=== PATIENT | male | born 1980 | race Caucasian/White ===

== ENCOUNTER 2016-09-16 04:57 | Emergency (ER) | payer MEDICARE, MEDICAID ==
[~2016-09-16] VITALS: Ht 167.6 cm; Wt 88.0 kg
[~2016-09-16 04:57] MED LIST: ACET500C5 PO; IBUP-1542 PO; LORA-444; NAPR-260 PO; OLAN20TA3; TRAZ50TA18 PO; VALS80TA2
[2016-09-16 05:10] VITALS: Ht 167.6 cm; Wt 88.0 kg
[2016-09-16] MEDS ORDERED: HALOPERIDOL 5 MG INJ ONE (05:27)
[2016-09-16] MEDS ORDERED: DIPHENHYDRAMINE 50 MG INJ ONE (05:27)
[2016-09-16] MEDS ORDERED: LORAZEPAM 2 MG INJ ONE (05:28)
[2016-09-16] MEDS ORDERED: DIPHENHYDRAMINE 50 MG INJ IM ONE (06:00)
[2016-09-16] MEDS ORDERED: HALOPERIDOL 5 MG INJ IM ONE ×2 (06:00→06:30)
[2016-09-16] MEDS ORDERED: LORAZEPAM 2 MG INJ IM ONE ×2 (06:00→06:30)
[2016-09-16 06:04] LABS: ADD SCAN DIFF NO
[2016-09-16 06:10] LABS: ABNORMAL IP MESSAGE 1; BASOPHIL # 0.1 10^3/ul (0.0-0.1); BASOPHILS % 0.4 % (0.0-2.0); EOSINOPHILS # 0.1 10^3/ul (0.0-0.5); EOSINOPHILS % 0.6 % (0.0-7.0); HEMATOCRIT 46.9 % (42.0-52.0); HEMOGLOBIN 15.4 g/dl (14.0-18.0); LYMPHOCYTES # 3.9 10^3/ul (0.8-2.9); LYMPHOCYTES % 17.3 % (15.0-51.0); MEAN CORPUSCULAR HEMOGLOBIN 29.3 pg (29.0-33.0); MEAN CORPUSCULAR HGB CONC 32.8 g/dl (32.0-37.0); MEAN CORPUSCULAR VOLUME 89.2 fl (82.0-101.0); MEAN PLATELET VOLUME 8.9 fl (7.4-10.4); MONOCYTE # 1.7 10^3/ul (0.3-0.9); MONOCYTES % 7.5 % (0.0-11.0); NEUTROPHIL # 16.5 10^3/ul (1.6-7.5); NEUTROPHILS % 73.1 % (39.0-77.0); PLATELET COUNT 456 10^3/UL (140-415); RED BLOOD COUNT 5.26 10^6/ul (4.70-6.10); RED CELL DISTRIBUTION WIDTH 14.2 % (11.5-14.5); WHITE BLOOD COUNT 22.6 10^3/ul (4.8-10.8)
[2016-09-16] MEDS ORDERED: MIDAZOLAM 1 MG/ML 5 ML INJ IM ONE (06:30)
[2016-09-16] MEDS ORDERED: MIDAZOLAM 1 MG/ML 2 ML INJ IM ONE (06:31)
[2016-09-16 06:33] LABS: ADD UMIC NO; URINE BILIRUBIN (Dip) NEGATIVE (NEGATIVE); URINE BLOOD (Dip) NEGATIVE (NEGATIVE); URINE COLOR LT. YELLOW (YELLOW); URINE KETONES (Dip) TRACE (NEGATIVE); URINE LEUKOCYTE ESTERASE (Dip) NEGATIVE (NEGATIVE); URINE NITRITE (Dip) NEGATIVE (NEGATIVE); URINE TOTAL PROTEIN (Dip) NEGATIVE (NEGATIVE); URINE UROBILINOGEN (Dip) 0.2 E.U./dL (0.1-1.0)
[2016-09-16] MEDS ORDERED: MIDAZOLAM 5 MG/ML 1ML INJ IM ONE (06:35)
[2016-09-16 06:44] LABS: ALBUMIN 4.7 g/dl (3.3-4.9); CHLORIDE 101 mmol/L (97-110)
[2016-09-16 06:45] LABS: POTASSIUM 3.9 mmol/L (3.5-5.1); SODIUM 146 mmol/L (135-144)
[2016-09-16 06:47] LABS: ALANINE AMINOTRANSFERASE 24 IU/L (13-69); ALBUMIN/GLOBULIN RATIO 1.17; ALKALINE PHOSPHATASE 78 IU/L (42-121); ANION GAP 20 (8-16); ASPARTATE AMINO TRANSFERASE 18 IU/L (15-46); BILIRUBIN,INDIRECT 0.6 mg/dl (0-1.1); BILIRUBIN,TOTAL 0.6 mg/dl (0.2-1.3); BLOOD UREA NITROGEN 16 mg/dl (7-20); CARBON DIOXIDE 29 mmol/L (21-31); CREATININE 0.74 mg/dl (0.61-1.24); TOTAL PROTEIN 8.7 g/dl (6.1-8.1)
[2016-09-16 06:48] LABS: CALCIUM 10.8 mg/dl (8.4-10.2); GLUCOSE 214 mg/dl (70-220)
[2016-09-16 06:58] LABS: CANNABINOIDS Positive (NEGATIVE)
[2016-09-16 07:06] LABS: ACETAMINOPHEN < 10.0 ug/ml (10.0-30.0); ETHANOL < 10.0 mg/dl; SALICYLATE < 1.0 mg/dl (5.0-30.0)
[2016-09-16 07:14] LABS: BARBITURATES Negative (NEGATIVE); BENZODIAZEPINES Negative (NEGATIVE); COCAINE Negative (NEGATIVE); OPIATES Negative (NEGATIVE)
--- NOTE | 2016-09-16 08:09 | ERA ---
ER Documentation Chief Complaint Date/Time DATE: 09/16/16 TIME: 08:05 Chief Complaint BIBA & PD,not in custody,combative,wanted "to blow up" hospital,rt CP HPI This is a 36-year-old male who presents to the emergency room after being brought in by ambulance and police for agitation. The patient states that he did use cocaine. The patient states that "I do not want to talk to anyone". He also states that he does not like anyone to be around him. He is denying any suicidal ideation, but states that he will " Kill anyone who tries to touch me" further history is unobtainable from patient ROS All systems reviewed and are negative except as per history of present illness. Medications Home Meds Active Scripts Acetaminophen* (Tylophen*) 500 Mg Capsule, 1 CAP PO TID Y for PAIN, #30 CAP Prov:AHMET MEDINA MD 06/13/16 Naproxen* (Naprosyn*) 500 Mg Tablet, 500 MG PO BID Y for PAIN AND/OR INFLAMMATION, #30 TAB Prov:AHMET MEDINA MD 06/13/16 Ibuprofen* (Ibuprofen*) 600 Mg Tablet, 600 MG PO Q8 for PAIN AND/OR INFLAMMATION , #30 TAB Prov:AHMET MEDINA MD 06/13/16 Trazodone Hcl* (Trazodone Hcl*) 50 Mg Tablet, 50 MG PO QHS Y for INSOMNIA, #6 TAB Prov:ANUPAM CRYSTAL DO 02/14/16 Reported Medications Valsartan* (Diovan*) 80 Mg Tablet 07/27/09 Lorazepam* (Ativan*) 2 Mg Tablet 07/27/09 Olanzapine* (Zyprexa*) 20 Mg Tablet 07/27/09 Allergies Allergies: Coded Allergies: divalproex sodium (Verified Allergy, Mild, 09/16/16) risperidone (Verified Allergy, Mild, 09/16/16) PMhx/Soc History of Surgery: Yes (BACK,NECK) Hx Neurological Disorder: No Hx Respiratory Disorders: No Hx Cardiac Disorders: No Hx Psychiatric Problems: Yes (Bipolar) Hx Miscellaneous Medical Probl: Yes (HTN) Hx Alcohol Use: Yes (Smells of alcohol ) Hx Substance Use: Yes (Marijuana cocaine) Hx Tobacco Use: Yes Smoking Status: Current every day smoker Physical Exam Vitals Vital Signs Date Time Temp Pulse Resp B/P Pulse Ox O2 Delivery O2 Flow Rate FiO2 09/16/16 07:25 98.1 101 15 131/82 95 09/16/16 06:55 98.0 105 16 135/89 100 09/16/16 06:40 97.9 110 16 141/86 100 09/16/16 06:40 98.1 110 19 145/80 100 Room Air 09/16/16 05:10 98.7 115 18 141/74 95 Physical Exam INITIAL VITAL SIGNS: Reviewed by me GENERAL: The patient is well developed, extremely agitated and screaming HEENT: Dry mucous membranes pupils equal, round, and reactive to light. EOMI. There is no scleral icterus. NECK: C-spine is soft and supple, there is no meningismus. There is no cervical lymphadenopathy. LUNGS: Clear to auscultation bilaterally. There are no rales, wheezes or rhonchi. HEART: Tachycardic, no murmurs, clicks, rubs or gallops. ABDOMEN: Soft, non-tender, non-distended. There are bowel sounds in all four quadrants. No rebound or guarding. EXTREMITIES: There is no peripheral cyanosis or edema. No focal swelling or erythema. NEUROLOGICAL: The patient moves all four extremities with 5/5 strength. Cranial nerves II - XII are intact. Normal gait. Alert and oriented SKIN: There is no apparent rash or petechiae. HEME/LYMPHATIC: There is no evidence of excessive bruising or lymphedema. PSYCHIATRIC: The patient appears extremely agitated, yelling and cursing Result Diagram: 09/16/16 0550 09/16/16 0550 Results 24 hrs Laboratory Tests Test 09/16/16 05:50 09/16/16 06:10 Acetaminophen Level < 10.0ug/ml Alanine Aminotransferase (ALT/SGPT) 24IU/L Albumin 4.7g/dl Albumin/Globulin Ratio 1.17 Alkaline Phosphatase 78IU/L Anion Gap 20 Aspartate Amino Transf (AST/SGOT) 18IU/L Basophils # 0.110^3/ul Basophils % 0.4% Blood Urea Nitrogen 16mg/dl Calcium Level 10.8mg/dl Carbon Dioxide Level 29mmol/L Chloride Level 101mmol/L Creatinine 0.74mg/dl Direct Bilirubin 0.00mg/dl Eosinophils # 0.110^3/ul Eosinophils % 0.6% Ethyl Alcohol Level < 10.0mg/dl Globulin 4.00g/dl Glucose Level 214mg/dl Hematocrit 46.9% Hemoglobin 15.4g/dl Indirect Bilirubin 0.6mg/dl Lymphocytes # 3.910^3/ul Lymphocytes % 17.3% Mean Corpuscular Hemoglobin 29.3pg Mean Corpuscular Hemoglobin Concent 32.8g/dl Mean Corpuscular Volume 89.2fl Mean Platelet Volume 8.9fl Monocytes # 1.710^3/ul Monocytes % 7.5% Neutrophils # 16.510^3/ul Neutrophils % 73.1% Nucleated Red Blood Cells # 0.010^3/ul Nucleated Red Blood Cells % 0.0/100WBC Platelet Count 90906^3/UL Potassium Level 3.9mmol/L Red Blood Count 5.2610^6/ul Red Cell Distribution Width 14.2% Salicylates Level < 1.0mg/dl Sodium Level 146mmol/L Total Bilirubin 0.6mg/dl Total Protein 8.7g/dl White Blood Count 22.610^3/ul Urine Amphetamines Screen Negative Urine Barbiturates Negative Urine Benzodiazepines Screen Negative Urine Bilirubin NEGATIVE Urine Cannabinoids Positive Urine Clarity CLEAR Urine Cocaine Screen Negative Urine Color LT. YELLOW Urine Glucose 0.1%% Urine Hemoglobin NEGATIVE Urine Ketones TRACE Urine Leukocyte Esterase NEGATIVE Urine Nitrite NEGATIVE Urine Opiates Screen Negative Urine Specific [place] 1.020 Urine Total Protein NEGATIVE Urine Urobilinogen 0.2 E.U./dL Urine pH 7.0 Current Medications Medications (Trade) Dose Ordered Sig/Sergio Route PRN Reason Start Time Stop Time Status Last Admin Dose Admin Diphenhydramine HCl (Benadryl) 50 mg STK-MED ONCE .ROUTE 09/16/16 05:27 09/16/16 05:28 DC Haloperidol (Haldol) 5 mg STK-MED ONCE .ROUTE 09/16/16 05:27 09/16/16 05:28 DC Lorazepam (Ativan) 2 mg STK-MED ONCE .ROUTE 09/16/16 05:28 09/16/16 05:29 DC Haloperidol (Haldol) 5 mg ONCE ONCE IM 09/16/16 06:00 09/16/16 06:01 DC 09/16/16 05:56 Diphenhydramine HCl (Benadryl) 50 mg ONCE ONCE IM 09/16/16 06:00 09/16/16 06:01 DC 09/16/16 05:56 Lorazepam (Ativan) 2 mg ONCE ONCE IM 09/16/16 06:00 09/16/16 06:01 DC 09/16/16 05:55 Lorazepam (Ativan) 4 mg ONCE ONCE IM 09/16/16 06:30 09/16/16 06:31 DC 09/16/16 06:11 Haloperidol (Haldol) 5 mg ONCE ONCE IM 09/16/16 06:30 09/16/16 06:31 DC 09/16/16 06:11 Midazolam HCl (Versed) 10 mg ONCE ONCE IM 09/16/16 06:30 09/16/16 06:30 DC Midazolam HCl (Versed) 10 mg ONCE ONCE IM 09/16/16 06:31 09/16/16 06:32 Cancel Midazolam HCl (Versed 5 Mg/ml) 10 mg ONCE ONCE IM 09/16/16 06:35 09/16/16 06:36 DC Procedures/MDM This 36-year-old male presents to the ER for evaluation of agitation. The patient does state that he used cocaine. The patient was cursing and yelling in the emergency room, and was given 2 mg intramuscular of Ativan, 5 mg intramuscular of Haldol. The patient continued to be aggressive towards myself and staff. Security was called in this patient was placed in 4. restraints. The patient was given 4 mg intramuscular of Ativan, and additional 5 mg of intramuscular Haldol. This patient will be evaluated by tele-psychiatric physician when he is alert. Smoking Cessation Therapy: Pt. was lectured for greater than 3 minutes on the health risks of continued smoking and the benefits of cessation. Departure Diagnosis: Primary Impression: Agitation Additional Impressions: Dehydration Cocaine abuse Tobacco abuse Condition: SMITA Russell DO Sep 16, 2016 08:09
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
[2016-09-16] MEDS ORDERED: SOD CHLORIDE 0.9% 1,000 ML IV STA (11:56)
[2016-09-16] MEDS ORDERED: LORAZEPAM 2 MG INJ IV ONE ×3 (12:00→14:30)
[2016-09-16] MEDS ORDERED: OLANZAPINE 5 MG TAB PO ONE (12:30)
[2016-09-16] MEDS ORDERED: DIPHENHYDRAMINE 50 MG INJ IV ONE (13:00)
[2016-09-16 16:00] VITALS: BP 131/86; PULSE 108; RESP 19; TEMP 98.2
== END 2016-09-16 16:20 ==
LOC: E/R 04:57
DX: R45.1 Restlessness and agitation (principal); E86.0 Dehydration; F14.10 Cocaine abuse, uncomplicated; F17.210 Nicotine dependence, cigarettes, uncomplicated; I10 Essential (primary) hypertension; E11.9 Type 2 diabetes mellitus without complications
CPT/HCPCS: 36415; 80053; 80306; 80307; 81003; 85025; 96372; 96374; 96375; 96376; 99285; J1200; J1630; J2060; J2250; J7030

== ENCOUNTER 2017-01-01 19:54 | Emergency (ER) | payer MEDICAID ==
[~2017-01-01] VITALS: Ht 167.6 cm; Wt 95.0 kg
[2017-01-01 19:59] VITALS: Ht 167.6 cm; Wt 95.0 kg
[2017-01-01] MEDS ORDERED: LORAZEPAM 2 MG INJ IM ONE (21:00)
[2017-01-01 22:37] LABS: ADD SCAN DIFF NO
[2017-01-01 22:42] LABS: BASOPHILS % 0.4 % (0.0-2.0); EOSINOPHILS % 0.4 % (0.0-7.0); HEMATOCRIT 41.2 % (42.0-52.0); HEMOGLOBIN 13.8 g/dl (14.0-18.0); LYMPHOCYTES # 2.9 10^3/ul (0.8-2.9); LYMPHOCYTES % 30.8 % (15.0-51.0); MEAN CORPUSCULAR HEMOGLOBIN 29.3 pg (29.0-33.0); MEAN CORPUSCULAR HGB CONC 33.5 g/dl (32.0-37.0); MEAN CORPUSCULAR VOLUME 87.5 fl (82.0-101.0); MEAN PLATELET VOLUME 8.6 fl (7.4-10.4); MONOCYTE # 0.6 10^3/ul (0.3-0.9); MONOCYTES % 6.1 % (0.0-11.0); NEUTROPHIL # 5.9 10^3/ul (1.6-7.5); NEUTROPHILS % 61.6 % (39.0-77.0); PLATELET COUNT 329 10^3/UL (140-415); RED BLOOD COUNT 4.71 10^6/ul (4.70-6.10); RED CELL DISTRIBUTION WIDTH 12.9 % (11.5-14.5); WHITE BLOOD COUNT 9.6 10^3/ul (4.8-10.8)
[2017-01-01 23:02] LABS: ALANINE AMINOTRANSFERASE 25 IU/L (13-69); ALBUMIN 5.2 g/dl (3.3-4.9); ALBUMIN/GLOBULIN RATIO 1.67; ALKALINE PHOSPHATASE 65 IU/L (42-121); ANION GAP 16 (8-16); ASPARTATE AMINO TRANSFERASE 14 IU/L (15-46); BILIRUBIN,INDIRECT 0.4 mg/dl (0-1.1); BILIRUBIN,TOTAL 0.4 mg/dl (0.2-1.3); BLOOD UREA NITROGEN 11 mg/dl (7-20); CALCIUM 10.1 mg/dl (8.4-10.2); CARBON DIOXIDE 24 mmol/L (21-31); CHLORIDE 104 mmol/L (97-110); CREATININE 0.79 mg/dl (0.61-1.24); GLUCOSE 161 mg/dl (70-220); POTASSIUM 4.4 mmol/L (3.5-5.1); SODIUM 140 mmol/L (135-144); TOTAL PROTEIN 8.3 g/dl (6.1-8.1)
[2017-01-01 23:03] LABS: ACETAMINOPHEN < 10.0 ug/ml (10.0-30.0); ETHANOL < 10.0 mg/dl; SALICYLATE < 1.0 mg/dl (5.0-30.0)
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
--- NOTE | 2017-01-02 02:58 | ERA ---
ER Documentation Chief Complaint Date/Time DATE: 01/02/17 TIME: 02:58 Chief Complaint psychiatric problems, in police custody HPI 28-year-old male brought in by police for being agitated and bizarre. Patient has delusions and has auditory and visual hallucinations. Patient called police that he had a gun. ROS All systems reviewed and are negative except as per history of present illness. Medications Home Meds Active Scripts Acetaminophen* (Tylophen*) 500 Mg Capsule, 1 CAP PO TID Y for PAIN, #30 CAP Prov:AHMET MEDINA MD 06/13/16 Naproxen* (Naprosyn*) 500 Mg Tablet, 500 MG PO BID Y for PAIN AND/OR INFLAMMATION, #30 TAB Prov:AHMET MEDINA MD 06/13/16 Ibuprofen* (Ibuprofen*) 600 Mg Tablet, 600 MG PO Q8 for PAIN AND/OR INFLAMMATION , #30 TAB Prov:AHMET MEDINA MD 06/13/16 Trazodone Hcl* (Trazodone Hcl*) 50 Mg Tablet, 50 MG PO QHS Y for INSOMNIA, #6 TAB Prov:ANUPAM CRYSTAL DO 02/14/16 Reported Medications Valsartan* (Diovan*) 80 Mg Tablet 07/27/09 Lorazepam* (Ativan*) 2 Mg Tablet 07/27/09 Olanzapine* (Zyprexa*) 20 Mg Tablet 07/27/09 Allergies Allergies: Coded Allergies: divalproex sodium (Verified Allergy, Mild, 09/16/16) risperidone (Verified Allergy, Mild, 09/16/16) PMhx/Soc History of Surgery: Yes (BACK,NECK) Hx Neurological Disorder: No Hx Respiratory Disorders: No Hx Cardiac Disorders: No Hx Psychiatric Problems: Yes (Bipolar) Hx Miscellaneous Medical Probl: Yes (HTN) Hx Alcohol Use: Yes (Smells of alcohol ) Hx Substance Use: Yes (crack cocaine) Hx Tobacco Use: Yes Smoking Status: Current every day smoker Physical Exam Vitals Vital Signs Date Time Temp Pulse Resp B/P Pulse Ox O2 Delivery O2 Flow Rate FiO2 01/01/17 19:59 97.9 114 26 170/101 98 Physical Exam Const: [] Head: Atraumatic Eyes: Normal Conjunctiva ENT: Normal External Ears, Nose and Mouth. Neck: Full range of motion..~ No meningismus. Resp: Clear to auscultation bilaterally Cardio: Regular rate and rhythm, no murmurs Abd: Soft, non tender, non distended. Normal bowel sounds Skin: No petechiae or rashes Back: No midline or flank tenderness Ext: No cyanosis, or edema Neur: Awake and alert Psych: Normal Mood and Affect Result Diagram: 01/01/17222401/01/172224 Results 24 hrs Laboratory Tests Test 01/01/17 20:30 01/01/17 22:25 Bedside Glucose 183mg/dL White Blood Count 9.610^3/ul Red Blood Count 4.7110^6/ul Hemoglobin 13.8g/dl Hematocrit 41.2% Mean Corpuscular Volume 87.5fl Mean Corpuscular Hemoglobin 29.3pg Mean Corpuscular Hemoglobin Concent 33.5g/dl Red Cell Distribution Width 12.9% Platelet Count 07854^3/UL Mean Platelet Volume 8.6fl Neutrophils % 61.6% Lymphocytes % 30.8% Monocytes % 6.1% Eosinophils % 0.4% Basophils % 0.4% Nucleated Red Blood Cells % 0.0/100WBC Neutrophils # 5.910^3/ul Lymphocytes # 2.910^3/ul Monocytes # 0.610^3/ul Eosinophils # 0.010^3/ul Basophils # 0.010^3/ul Nucleated Red Blood Cells # 0.010^3/ul Sodium Level 140mmol/L Potassium Level 4.4mmol/L Chloride Level 104mmol/L Carbon Dioxide Level 24mmol/L Anion Gap 16 Blood Urea Nitrogen 11mg/dl Creatinine 0.79mg/dl Glucose Level 161mg/dl Calcium Level 10.1mg/dl Total Bilirubin 0.4mg/dl Direct Bilirubin 0.00mg/dl Indirect Bilirubin 0.4mg/dl Aspartate Amino Transf (AST/SGOT) 14IU/L Alanine Aminotransferase (ALT/SGPT) 25IU/L Alkaline Phosphatase 65IU/L Total Protein 8.3g/dl Albumin 5.2g/dl Globulin 3.10g/dl Albumin/Globulin Ratio 1.67 Salicylates Level < 1.0mg/dl Acetaminophen Level < 10.0ug/ml Ethyl Alcohol Level < 10.0mg/dl Current Medications Medications (Trade) Dose Ordered Sig/Sergio Route PRN Reason Start Time Stop Time Status Last Admin Dose Admin Lorazepam (Ativan) 2 mg ONCE ONCE IM 01/01/17 21:00 01/01/17 21:01 DC 01/01/17 20:54 Procedures/MDM Patient's behavioral symptoms have stabilized while in the department. Patient is medically cleared and appropriate for psychiatric evaluation and work up. No e/o neurologic, toxic, infectious, or metabolic cause. Telemetry recommended 5150 hold. Pending BHU placement Departure Diagnosis: Primary Impression: Psychological disorder Condition: Serious KAI BELLAMY Jan 02, 2017 02:58
[2017-01-02] MEDS ORDERED: HALO10TA PO (03:21)
[2017-01-02] MEDS ORDERED: BENZ2TAB37 PO (03:22)
[2017-01-02] MEDS ORDERED: GLIP5TAB13 PO (03:24)
[2017-01-02] MEDS ORDERED: DIVA125T14 PO (03:24)
[2017-01-02] MEDS: BENZTROPINE 1 MG TAB PO SCH ×3 (03:59→21:44)
[2017-01-02] MEDS: HALOPERIDOL 5 MG TAB PO SCH ×3 (03:59→21:44)
[2017-01-02] MEDS: glipiZIDE 5 MG TAB PO SCH ×3 (04:00→21:44)
[2017-01-02] MEDS ORDERED: HALOPERIDOL 10 MG PO SCH (04:00)
[2017-01-02] MEDS ORDERED: HALOPERIDOL 5 MG INJ ONE (06:30)
[2017-01-02] MEDS ORDERED: LORAZEPAM 1 MG TAB PO ONE (06:30)
[2017-01-02] MEDS ORDERED: HALOPERIDOL 5 MG INJ IM ONE (07:00)
[2017-01-02 13:37] LABS: ADD UMIC NO; UR BILIRUBIN (Dip) NEGATIVE (NEGATIVE); UR BLOOD (Dip) NEGATIVE (NEGATIVE); UR CLARITY CLEAR (CLEAR); UR COLOR LT. YELLOW (YELLOW); UR GLUCOSE (Dip) NEGATIVE (NEGATIVE); UR KETONES (Dip) NEGATIVE (NEGATIVE); UR LEUKOCYTE ESTERASE (Dip) NEGATIVE (NEGATIVE); UR NITRITE (Dip) NEGATIVE (NEGATIVE); UR TOTAL PROTEIN (Dip) NEGATIVE (NEGATIVE); UR UROBILINOGEN (Dip) 0.2 E.U./dL (0.1-1.0)
[2017-01-02 14:03] LABS: CANNABINOIDS Negative (NEGATIVE)
[2017-01-02 14:04] LABS: BARBITURATES Negative (NEGATIVE); BENZODIAZEPINES Negative (NEGATIVE); COCAINE Negative (NEGATIVE); OPIATES Negative (NEGATIVE)
[2017-01-02] MEDS ORDERED: NICOTINE (14 MG/24 HR) PATCH TRANSDERM ONE (14:30)
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
[2017-01-02] MEDS ORDERED: DIVALPROEX (EC) 125 MG TAB PO SCH (21:00)
[2017-01-02] MEDS ORDERED: IBUPROFEN 800 MG TAB PO ONE (22:00)
[2017-01-03] MEDS ORDERED: ACETAMINOPHEN 500 MG TAB PO STA (06:51)
[2017-01-03] MEDS ORDERED: DIPHENHYDRAMINE 50 MG INJ IM ONE (07:00)
[2017-01-03] MEDS: glipiZIDE 5 MG TAB PO SCH (09:26)
[2017-01-03] MEDS: BENZTROPINE 1 MG TAB PO SCH (09:27)
[2017-01-03] MEDS: HALOPERIDOL 5 MG TAB PO SCH (09:27)
[2017-01-03] MEDS ORDERED: OLANZAPINE 5 MG TAB PO ONE (09:30)
[2017-01-03] MEDS ORDERED: HALOPERIDOL 5 MG INJ IM ONE (09:30)
[2017-01-03] MEDS ORDERED: IBUPROFEN 800 MG TAB PO ONE (16:00)
[2017-01-03 20:31] VITALS: BP 130/79; PULSE 78; RESP 16; TEMP 99
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
[2017-01-03] MEDS ORDERED: DIVA500T7 PO (20:55)
[2017-01-03] MEDS ORDERED: BENZ1TAB7 PO (20:55)
[2017-01-03] MEDS ORDERED: HAL5 PO (20:55)
== END 2017-01-03 21:19 | disposition home or self-care (01) ==
LOC: E/R 19:54
DX: F99 Mental disorder, not otherwise specified (principal); R40.2252 Coma scale, best verbal response, oriented, at arrival to emergency department; I10 Essential (primary) hypertension; F17.210 Nicotine dependence, cigarettes, uncomplicated; R40.2142 Coma scale, eyes open, spontaneous, at arrival to emergency department; R40.2362 Coma scale, best motor response, obeys commands, at arrival to emergency department
CPT/HCPCS: 36415; 80053; 80306; 80307; 81003; 82962; 85025; 96372; J1200; J1630; J2060; Z7502; Z7610

== ENCOUNTER 2017-01-11 08:17 | Emergency (ER) | payer MEDICARE, MEDICAID ==
[~2017-01-11] VITALS: Wt 90.9 kg
[~2017-01-11 08:17] MED LIST changes: -ACET500C5 PO; +BENZ1TAB7 PO; +BENZ2TAB37 PO; +DIVA125T14 PO; +DIVA500T7 PO; +GLIP5TAB13 PO; +HAL5 PO; +HALO10TA PO; -IBUP-1542 PO; -LORA-444; -NAPR-260 PO; -OLAN20TA3; -TRAZ50TA18 PO; -VALS80TA2
[2017-01-11] MEDS ORDERED: HYD25 PO (09:20)
--- NOTE | 2017-01-11 09:20 | ERD ---
ER Documentation Chief Complaint Date/Time DATE: 01/11/17 Chief Complaint Medication refill HPI The patient is a 36-year-old male with history of psychiatric disease, schizophrenia, hypertension, diabetes mellitus, who presents to the Emergency Department requesting medication refill of his medications. The patient reports that he finished his last pills of Glipizide and Cogentin this morning, and is very low on his other medications. He has a follow up appointment scheduled with his primary medical provider within one week, but is hoping to obtain refills of all of his medications until he can be seen by his PMD. Otherwise, he has no current complaints or concerns. Denies suicidal ideation, homicidal ideation, hallucinations, delusions. Denies chest pain, palpitations, shortness of breath, abdominal pain, vomiting, diarrhea, fevers, sweats, chills, leg swelling, or any other complaints at this time. The patient is requesting medication refills of his: Glipizide 5 mg PO BID, Cogentin 1 mg daily, Fish oil 1000 mg, Haldol 10 mg, Depakote ER 1000 mg, Ibuprofen 800 mg and HCTZ 25 mg ( recently started in [place]). ROS All systems reviewed and are negative except as per history of present illness. Medications Home Meds Active Scripts Ibuprofen* (Motrin*) 800 Mg Tab, 800 MG PO Q6, #20 TAB Prov:BALDEV ZULUAGA PA-C 01/11/17 Divalproex Sodium* (Depakote ER*) 500 Mg Tabsr, 1000 MG PO DAILY, #20 TAB.SA Prov:BALDEV ZULUAGA PA-C 01/11/17 Haloperidol* (Haloperidol*) 10 Mg Tablet, 10 MG PO DAILY, #20 TAB Prov:BALDEV ZULUAGA PA-C 01/11/17 [place]-3 Fatty Acids/Fish Oil (Fish Oil 1,000 mg Capsule) 1 Each Capsule, 1 EACH PO DAILY, #7 CAP Prov:BALDEV ZULUAGA PA-C 01/11/17 Benztropine Mesylate* (Benztropine Mesylate*) 1 Mg Tablet, 1 MG PO DAILY, #20 TAB Prov:BALDEV ZULUAGA PA-C 01/11/17 Glipizide* (Glipizide*) 5 Mg Tablet, 5 MG PO BID, #20 TAB Prov:BALDEV ZULUAGA PA-C 01/11/17 Hydrochlorothiazide* (Hydrochlorothiazide*) 25 Mg Tab, 25 MG PO DAILY, #30 TAB Prov:BALDEV ZULUAGA PA-C 01/11/17 Benztropine Mesylate* (Benztropine Mesylate*) 1 Mg Tablet, 1 MG PO QHS, #7 TAB Prov:PRATEEK KEYS MD 01/03/17 Haloperidol* (Haldol*) 5 Mg Tab, 5 MG PO QHS, #7 TAB Prov:PRATEEK KEYS MD 01/03/17 Divalproex Sodium* (Depakote ER*) 500 Mg Tabsr, 1000 MG PO QHS, #7 TAB.SA Prov:PRATEEK KEYS MD 01/03/17 Reported Medications Glipizide* (Glipizide*) 5 Mg Tablet, 5 MG PO BID, TAB 01/02/17 Divalproex Sodium* (Depakote*) 125 Mg Tablet.dr, 125 MG PO QHS, #120 TAB 01/02/17 Benztropine Mesylate* (Benztropine Mesylate*) 2 Mg Tablet, 2 MG PO BID, TAB 01/02/17 Haloperidol* (Haloperidol*) 10 Mg Tablet, 10 MG PO BID, TAB 01/02/17 Allergies Allergies: Coded Allergies: risperidone (Verified Allergy, Mild, 01/03/17) PMhx/Soc History of Surgery: Yes (BACK,NECK) Hx Neurological Disorder: No Hx Respiratory Disorders: No Hx Cardiac Disorders: No Hx Psychiatric Problems: Yes (Bipolar) Hx Miscellaneous Medical Probl: Yes (HTN) Hx Alcohol Use: Yes (Smells of alcohol ) Hx Substance Use: Yes (crack cocaine) Hx Tobacco Use: Yes Physical Exam Vitals Vital Signs Date Time Temp Pulse Resp B/P Pulse Ox O2 Delivery O2 Flow Rate FiO2 01/11/17 08:41 98.0 104 20 145/83 97 Physical Exam Const: Well-developed, well-nourished, in no acute distress. Head: Atraumatic Eyes: Normal Conjunctiva ENT: Normal External Ears, Nose and Mouth. Neck: Full range of motion. Resp: Clear to auscultation bilaterally Cardio: Regular rate and rhythm, no murmurs Abd: Soft, non tender, non distended. Normal bowel sounds Skin: No petechiae or rashes Back: No midline or flank tenderness Ext: No cyanosis, or edema Neur: Awake and alert Psych: Cooperative. Appropriate. Procedures/MDM This is a 36-year-old male presenting to the Emergency Department requesting a medication refill. The patient has no acute medical complaints or concerns. He has no associated suicidal ideation, homicidal ideation, delusions, visual or auditory hallucinations. No evidence of acute psychosis or any other emergent medical condition. At this time, the patient will be discharged home with a prescription for Ibuprofen, Depakote ER, Haldol, Fish oil, Cogentin, Glipizide, HCTZ and given strict return precautions for signs of deteriorating or worsening condition. He is advised to follow up with his primary medical provider for reevaluation and further management within 2-3 days or return to the ER sooner for any new or concerning symptoms. At the time of discharge, all questions were answered. Departure Diagnosis: Primary Impression: Encounter for medication refill Condition: Stable Patient Instructions: Taking Medicine Safely Additional Instructions: Call your primary care doctor TOMORROW for an appointment during the next 2-3 days.See the doctor sooner or return here if your condition worsens before your appointment time. BALDEV ZULUAGA PA-C Jan 11, 2017 09:20
[2017-01-11] MEDS ORDERED: GLIP5TAB13 PO (09:21)
[2017-01-11] MEDS ORDERED: OMEG-135 PO (09:22)
[2017-01-11] MEDS ORDERED: BENZ1TAB7 PO (09:22)
[2017-01-11] MEDS ORDERED: DIVA500T7 PO (09:23)
[2017-01-11] MEDS ORDERED: HALO10TA PO (09:23)
[2017-01-11] MEDS ORDERED: IBUP800T25 PO (09:23)
== END 2017-01-11 09:44 | disposition home or self-care (01) ==
LOC: FTE 08:17
DX: Z76.0 Encounter for issue of repeat prescription (principal); I10 Essential (primary) hypertension; E11.9 Type 2 diabetes mellitus without complications; F17.210 Nicotine dependence, cigarettes, uncomplicated; Z79.84 Long term (current) use of oral hypoglycemic drugs
CPT/HCPCS: 99281

== ENCOUNTER 2017-01-12 11:27 | Emergency (ER) | payer MEDICARE, MEDICAID ==
[~2017-01-12] VITALS: Ht 167.6 cm; Wt 102.0 kg
[~2017-01-12 11:27] MED LIST changes: +HYD25 PO; +IBUP800T25 PO; +OMEG-135 PO
[2017-01-12 11:32] VITALS: Ht 167.6 cm; Wt 102.0 kg
--- NOTE | 2017-01-12 11:57 | ERD ---
ER Documentation Chief Complaint Date/Time DATE: 01/12/17 TIME: 11:56 Chief Complaint STATES SMOKED TOO MUCH MARIJUANA DENIES PAIN SOB CP HPI This is a 36-year-old male who presents to the emergency room after he states he smoked marijuana. The patient states that he has a headache and would like Excedrin as Excedrin is only thing that helps his headaches. The patient states that his headache feels normal to previous headaches and is denying any homicidal or suicidal ideation. ROS All systems reviewed and are negative except as per history of present illness. Medications Home Meds Active Scripts Ibuprofen* (Motrin*) 800 Mg Tab, 800 MG PO Q6, #20 TAB Prov:BALDEV ZULUAGA PA-C 01/11/17 Divalproex Sodium* (Depakote ER*) 500 Mg Tabsr, 1000 MG PO DAILY, #20 TAB.SA Prov:BALDEV ZULUAGA PA-C 01/11/17 Haloperidol* (Haloperidol*) 10 Mg Tablet, 10 MG PO DAILY, #20 TAB Prov:BALDEV ZULUAGA PA-C 01/11/17 [place]-3 Fatty Acids/Fish Oil (Fish Oil 1,000 mg Capsule) 1 Each Capsule, 1 EACH PO DAILY, #7 CAP Prov:BALDEV ZULUAGA PA-C 01/11/17 Benztropine Mesylate* (Benztropine Mesylate*) 1 Mg Tablet, 1 MG PO DAILY, #20 TAB Prov:BALDEV ZULUAGA PA-C 01/11/17 Glipizide* (Glipizide*) 5 Mg Tablet, 5 MG PO BID, #20 TAB Prov:BALDEV ZULUAGA PA-C 01/11/17 Hydrochlorothiazide* (Hydrochlorothiazide*) 25 Mg Tab, 25 MG PO DAILY, #30 TAB Prov:BALDEV ZULUAGA PA-C 01/11/17 Benztropine Mesylate* (Benztropine Mesylate*) 1 Mg Tablet, 1 MG PO QHS, #7 TAB Prov:PRATEEK KEYS MD 01/03/17 Haloperidol* (Haldol*) 5 Mg Tab, 5 MG PO QHS, #7 TAB Prov:PRATEEK KEYS MD 01/03/17 Divalproex Sodium* (Depakote ER*) 500 Mg Tabsr, 1000 MG PO QHS, #7 TAB.SA Prov:PRATEEK KEYS MD 01/03/17 Reported Medications Glipizide* (Glipizide*) 5 Mg Tablet, 5 MG PO BID, TAB 01/02/17 Divalproex Sodium* (Depakote*) 125 Mg Tablet.dr, 125 MG PO QHS, #120 TAB 01/02/17 Benztropine Mesylate* (Benztropine Mesylate*) 2 Mg Tablet, 2 MG PO BID, TAB 01/02/17 Haloperidol* (Haloperidol*) 10 Mg Tablet, 10 MG PO BID, TAB 01/02/17 Allergies Allergies: Coded Allergies: risperidone (Verified Allergy, Mild, 01/12/17) PMhx/Soc History of Surgery: Yes (BACK,NECK) Hx Neurological Disorder: No Hx Respiratory Disorders: No Hx Cardiac Disorders: No Hx Psychiatric Problems: Yes (Bipolar) Hx Miscellaneous Medical Probl: Yes (HTN) Hx Alcohol Use: Yes (Smells of alcohol ) Hx Substance Use: Yes (crack cocaine) Hx Tobacco Use: Yes Physical Exam Vitals Vital Signs Date Time Temp Pulse Resp B/P Pulse Ox O2 Delivery O2 Flow Rate FiO2 01/12/17 11:32 98.2 88 18 137/84 99 Physical Exam Const: Disheveled appearing Head: Atraumatic Eyes: Normal Conjunctiva ENT: Normal External Ears, Nose and Mouth. Neck: Full range of motion..~ No meningismus. Resp: Clear to auscultation bilaterally Cardio: Regular rate and rhythm, no murmurs Abd: Soft, non tender, non distended. Normal bowel sounds Skin: No petechiae or rashes Back: No midline or flank tenderness Ext: No cyanosis, or edema Neur: Awake and alert Psych: Normal Mood and Affect Results 24 hrs Current Medications Medications (Trade) Dose Ordered Sig/Sergio Route PRN Reason Start Time Stop Time Status Last Admin Dose Admin Acetaminophen/ Aspirin/Caffeine (Excedrin) 2 tab ONCE ONCE PO 01/12/17 12:00 01/12/17 12:01 Procedures/MDM This 36-year-old male presents to the emergency room for evaluation of a headache. The patient states that he does have chronic migraines and this does feel similar to previous. The patient states that he had no Excedrin, and came to the emergency room for Excedrin. The patient was given Excedrin in the emergency room. He is denying homicidal suicidal ideation and will be discharged home at this time Smoking Cessation Therapy: Pt. was lectured for greater than 3 minutes on the health risks of continued smoking and the benefits of cessation. Departure Diagnosis: Primary Impression: Cephalgia Additional Impressions: Tobacco abuse Tobacco abuse disorder Condition: Stable SMITA SUAREZ DO Jan 12, 2017 11:57
[2017-01-12] MEDS ORDERED: ASA/ACETAMINOPHEN/CAFF TAB PO ONE (12:00)
== END 2017-01-12 12:30 | disposition home or self-care (01) ==
LOC: E/R 11:27
DX: R51 Headache (principal); F17.210 Nicotine dependence, cigarettes, uncomplicated; I10 Essential (primary) hypertension; R40.2142 Coma scale, eyes open, spontaneous, at arrival to emergency department; R40.2252 Coma scale, best verbal response, oriented, at arrival to emergency department; R40.2362 Coma scale, best motor response, obeys commands, at arrival to emergency department
CPT/HCPCS: 99282

== ENCOUNTER 2017-03-07 12:20 | Emergency (ER) | payer MEDICAID ==
[~2017-03-07] VITALS: Ht 157.5 cm; Wt 94.0 kg
[~2017-03-07 12:20] MED LIST changes: -HAL5 PO; +HALO5TAB23 PO
[2017-03-07 12:23] VITALS: Ht 157.5 cm; Wt 94.0 kg
--- NOTE | 2017-03-07 12:49 | ERA ---
ER Documentation Chief Complaint Date/Time DATE: 03/07/17 TIME: 12:46 Chief Complaint REFILL OF PSYCH AND DIABETIC MEDS HPI Patient is presenting for medication refill of Haldol and "pain killers". Patient has no complaints and denies all symptoms. Denies diabetes or cardiovascular disease. Denies wanting to hurt himself or others. ROS All systems reviewed and are negative except as per history of present illness. Medications Home Meds Active Scripts Ibuprofen* (Motrin*) 800 Mg Tab, 800 MG PO Q6, #20 TAB Prov:BALDEV ZULUAGA PA-C 01/11/17 Divalproex Sodium* (Depakote ER*) 500 Mg Tabsr, 1000 MG PO DAILY, #20 TAB.SA Prov:BALDEV ZULUAGA PA-C 01/11/17 Haloperidol* (Haloperidol*) 10 Mg Tablet, 10 MG PO DAILY, #20 TAB Prov:BALDEV ZULUAGA PA-C 01/11/17 [place]-3 Fatty Acids/Fish Oil (Fish Oil 1,000 mg Capsule) 1 Each Capsule, 1 EACH PO DAILY, #7 CAP Prov:BALDEV ZULUAGA PA-C 01/11/17 Benztropine Mesylate* (Benztropine Mesylate*) 1 Mg Tablet, 1 MG PO DAILY, #20 TAB Prov:BALDEV ZULUAGA PA-C 01/11/17 Glipizide* (Glipizide*) 5 Mg Tablet, 5 MG PO BID, #20 TAB Prov:BALDEV ZULUAGA PA-C 01/11/17 Hydrochlorothiazide* (Hydrochlorothiazide*) 25 Mg Tab, 25 MG PO DAILY, #30 TAB Prov:BALDEV ZULUAGA PA-C 01/11/17 Benztropine Mesylate* (Benztropine Mesylate*) 1 Mg Tablet, 1 MG PO QHS, #7 TAB Prov:PRATEEK KEYS MD 01/03/17 Haloperidol* (Haldol*) 5 Mg Tab, 5 MG PO QHS, #7 TAB Prov:PRATEEK KEYS MD 01/03/17 Divalproex Sodium* (Depakote ER*) 500 Mg Tabsr, 1000 MG PO QHS, #7 TAB.SA Prov:PRATEEK KEYS MD 01/03/17 Reported Medications Glipizide* (Glipizide*) 5 Mg Tablet, 5 MG PO BID, TAB 01/02/17 Divalproex Sodium* (Depakote*) 125 Mg Tablet.dr, 125 MG PO QHS, #120 TAB 01/02/17 Benztropine Mesylate* (Benztropine Mesylate*) 2 Mg Tablet, 2 MG PO BID, TAB 01/02/17 Haloperidol* (Haloperidol*) 10 Mg Tablet, 10 MG PO BID, TAB 01/02/17 Allergies Allergies: Coded Allergies: risperidone (Verified Allergy, Mild, 01/12/17) PMhx/Soc History of Surgery: Yes (BACK,NECK) Hx Neurological Disorder: No Hx Respiratory Disorders: No Hx Cardiac Disorders: No Hx Psychiatric Problems: Yes (Bipolar) Hx Miscellaneous Medical Probl: Yes (HTN) Hx Alcohol Use: Yes (Smells of alcohol ) Hx Substance Use: Yes (crack cocaine) Hx Tobacco Use: Yes Smoking Status: Current some day smoker Physical Exam Vitals Vital Signs Date Time Temp Pulse Resp B/P Pulse Ox O2 Delivery O2 Flow Rate FiO2 03/07/17 12:23 98.1 89 18 136/89 99 Physical Exam Const: Well-appearing. Overweight. No acute distress. Head: Normocephalic, Atraumatic. Eyes: Non-injected; No discharge. EOMI and JUAN bilaterally. Ears: Normal External Ears, EACs clear, TM normal bilaterally without erythema. Nose: Normal external nose; no discharge, or sinus tenderness. Oral: No oral edema visualized. Mucous membranes moist and pink. Neck: No cervical lymphadenopathy, or masses palpated. Supple ~ No meningismus. Pulm: Good air movement in upper and lower respiratory tracts. Clear to auscultation bilaterally. No dyspnea or stridor. Cardio: Regular rate and rhythm; No murmurs, gallops or rubs auscultated. Radia pulses 2+ bilaterally. No cyanosis noted. Capillary refill less than 2 seconds. Abd: Normal bowel sounds. Soft, non tender, non distended. MS: Normal motor strength, normal tone with gross examination. Skin: No petechiae or rashes. Good turgor. Back: No midline, flank or CVA tenderness. Ext: No edema. Normal movement of all extremities grossly observed. Neur: Neurovascularly intact bilaterally. Psych: Normal Mood and Affect. Procedures/MDM 36-year-old male presenting for medication refill on all of his medications that include Haldol and "painkillers". Patient has no complaints at this time. Denies wanting to hurt himself or others. I told him I can give him a list of clinics that he can go to for chronic management of his conditions, but at the emergency department we do not refill medications. Patient has verbally stated that he understands and agrees to this plan of management. Departure Diagnosis: Primary Impression: Encounter for medication refill Condition: Stable Additional Instructions: Follow-up with PCP in the next 1-3 days for medication refill. Make appointment as soon as possible. If symptoms arise return to the emergency department immediately. SEN LUX PA-C Mar 07, 2017 12:48
== END 2017-03-07 13:22 | disposition home or self-care (01) ==
LOC: FTE 12:20
DX: Z76.0 Encounter for issue of repeat prescription (principal); F17.210 Nicotine dependence, cigarettes, uncomplicated; I10 Essential (primary) hypertension; Z79.84 Long term (current) use of oral hypoglycemic drugs
CPT/HCPCS: 99281

== ENCOUNTER 2017-03-22 02:20 | Emergency (ER) | payer MEDICARE, MEDICAID ==
[~2017-03-22] VITALS: Ht 167.6 cm; Wt 93.0 kg
[2017-03-22 02:25] VITALS: Ht 167.6 cm; Wt 93.0 kg
[2017-03-22] MEDS ORDERED: ACETAMINOPHEN 325 MG TAB PO ONE (04:00)
[2017-03-22 04:13] LABS: BASOPHIL # 0.1 10^3/ul (0.0-0.1); BASOPHILS % 0.4 % (0.0-2.0); EOSINOPHILS % 0.1 % (0.0-7.0); HEMATOCRIT 41.5 % (42.0-52.0); HEMOGLOBIN 14.3 g/dl (14.0-18.0); LYMPHOCYTES # 2.8 10^3/ul (0.8-2.9); LYMPHOCYTES % 15.3 % (15.0-51.0); MEAN CORPUSCULAR HEMOGLOBIN 29.5 pg (29.0-33.0); MEAN CORPUSCULAR HGB CONC 34.5 g/dl (32.0-37.0); MEAN CORPUSCULAR VOLUME 85.6 fl (82.0-101.0); MONOCYTE # 1.1 10^3/ul (0.3-0.9); NEUTROPHILS % 77.5 % (39.0-77.0); PLATELET COUNT 498 10^3/UL (140-415); RED BLOOD COUNT 4.85 10^6/ul (4.70-6.10); RED CELL DISTRIBUTION WIDTH 13.2 % (11.5-14.5)
[2017-03-22 04:50] LABS: CALCIUM 10.1 mg/dl (8.4-10.2); CREATININE 0.76 mg/dl (0.61-1.24); POTASSIUM 4.1 mmol/L (3.5-5.1)
[2017-03-22] MEDS ORDERED: IBUPROFEN 800 MG TAB PO ONE (05:00)
[2017-03-22 05:08] LABS: ADD UMIC NO; UR ASCORBIC ACID NEGATIVE (NEGATIVE); UR BILIRUBIN (Dip) NEGATIVE (NEGATIVE); UR BLOOD (Dip) NEGATIVE (NEGATIVE); UR CLARITY CLEAR (CLEAR); UR COLOR YELLOW (YELLOW); UR GLUCOSE (Dip) NEGATIVE (NEGATIVE); UR KETONES (Dip) NEGATIVE (NEGATIVE); UR LEUKOCYTE ESTERASE (Dip) NEGATIVE Leu/ul (NEGATIVE); UR NITRITE (Dip) NEGATIVE (NEGATIVE); UR SPECIFIC GRAVITY (Dip) 1.014 (1.003-1.030); UR TOTAL PROTEIN (Dip) NEGATIVE (NEGATIVE); UR UROBILINOGEN (Dip) NEGATIVE (NEGATIVE)
--- NOTE | 2017-03-22 05:22 | ERD ---
ER Documentation Chief Complaint Date/Time DATE: 03/22/17 TIME: 05:20 Chief Complaint PT reports he did a $100 worth of meth today and his hr is dropping HPI Patient reports that he did methamphetamines today. He states he wants to take a psychiatrist. He denies suicidal homicidal ideation. Denies any auditory or visual hallucinations. ROS All systems reviewed and are negative except as per history of present illness. Medications Home Meds Active Scripts Ibuprofen* (Motrin*) 800 Mg Tab, 800 MG PO Q6, #20 TAB Prov:BALDEV ZULUAGA PA-C 01/11/17 Divalproex Sodium* (Depakote ER*) 500 Mg Tabsr, 1000 MG PO DAILY, #20 TAB.SA Prov:BALDEV ZULUAGA PA-C 01/11/17 Haloperidol* (Haloperidol*) 10 Mg Tablet, 10 MG PO DAILY, #20 TAB Prov:BALDEV ZULUAGA PA-C 01/11/17 [place]-3 Fatty Acids/Fish Oil (Fish Oil 1,000 mg Capsule) 1 Each Capsule, 1 EACH PO DAILY, #7 CAP Prov:BALDEV ZULUAGA PA-C 01/11/17 Benztropine Mesylate* (Benztropine Mesylate*) 1 Mg Tablet, 1 MG PO DAILY, #20 TAB Prov:BALDEV ZULUAGA PA-C 01/11/17 Glipizide* (Glipizide*) 5 Mg Tablet, 5 MG PO BID, #20 TAB Prov:BALDEV ZULUAGA PA-C 01/11/17 Hydrochlorothiazide* (Hydrochlorothiazide*) 25 Mg Tab, 25 MG PO DAILY, #30 TAB Prov:BALDEV ZULUAGA PA-C 01/11/17 Discontinued Reported Medications Glipizide* (Glipizide*) 5 Mg Tablet, 5 MG PO BID, TAB 01/02/17 Divalproex Sodium* (Depakote*) 125 Mg Tablet.dr, 125 MG PO QHS, #120 TAB 01/02/17 Benztropine Mesylate* (Benztropine Mesylate*) 2 Mg Tablet, 2 MG PO BID, TAB 01/02/17 Haloperidol* (Haloperidol*) 10 Mg Tablet, 10 MG PO BID, TAB 01/02/17 Discontinued Scripts Benztropine Mesylate* (Benztropine Mesylate*) 1 Mg Tablet, 1 MG PO QHS, #7 TAB Prov:PRATEEK KEYS MD 01/03/17 Haloperidol* (Haldol*) 5 Mg Tab, 5 MG PO QHS, #7 TAB Prov:PRATEEK KEYS MD 01/03/17 Divalproex Sodium* (Depakote ER*) 500 Mg Tabsr, 1000 MG PO QHS, #7 TAB.SA Prov:PRATEEK KEYS MD 01/03/17 Allergies Allergies: Coded Allergies: risperidone (Verified Allergy, Mild, 01/12/17) PMhx/Soc History of Surgery: Yes (BACK,NECK) Hx Neurological Disorder: No Hx Respiratory Disorders: No Hx Cardiac Disorders: No Hx Miscellaneous Medical Probl: Yes (HTN) Hx Alcohol Use: Yes Hx Substance Use: Yes (CRACK, MARIJUANA) Hx Tobacco Use: Yes (CIGARETTES) Smoking Status: Heavy tobacco smoker Physical Exam Vitals Vital Signs Date Time Temp Pulse Resp B/P Pulse Ox O2 Delivery O2 Flow Rate FiO2 03/22/17 02:25 98.7 125 20 163/94 97 Physical Exam Const: [] Head: Atraumatic Eyes: Normal Conjunctiva ENT: Normal External Ears, Nose and Mouth. Neck: Full range of motion..~ No meningismus. Resp: Clear to auscultation bilaterally Cardio: Regular rate and rhythm, no murmurs Abd: Soft, non tender, non distended. Normal bowel sounds Skin: No petechiae or rashes Back: No midline or flank tenderness Ext: No cyanosis, or edema Neur: Awake and alert Psych: Normal Mood and Affect Result Diagram: 03/22/17 0353 Results 24 hrs Laboratory Tests Test 03/22/17 03:53 03/22/17 04:28 White Blood Count 18.010^3/ul Red Blood Count 4.8510^6/ul Hemoglobin 14.3g/dl Hematocrit 41.5% Mean Corpuscular Volume 85.6fl Mean Corpuscular Hemoglobin 29.5pg Mean Corpuscular Hemoglobin Concent 34.5g/dl Red Cell Distribution Width 13.2% Platelet Count 00558^3/UL Mean Platelet Volume 9.0fl Neutrophils % 77.5% Lymphocytes % 15.3% Monocytes % 6.0% Eosinophils % 0.1% Basophils % 0.4% Nucleated Red Blood Cells % 0.0/100WBC Neutrophils # (Manual) 13.910^3/ul Lymphocytes # 2.810^3/ul Monocytes # 1.110^3/ul Eosinophils # 0.010^3/ul Basophils # 0.110^3/ul Nucleated Red Blood Cells # 0.010^3/ul Urine Color YELLOW Urine Clarity CLEAR Urine pH 7.0 Urine Specific [place] 1.014 Urine Ketones NEGATIVEmg/dL Urine Nitrite NEGATIVEmg/dL Urine Bilirubin NEGATIVEmg/dL Urine Urobilinogen NEGATIVEmg/dL Urine Leukocyte Esterase NEGATIVELeu/ul Urine Hemoglobin NEGATIVEmg/dL Urine Glucose NEGATIVEmg/dL Urine Total Protein NEGATIVEmg/dl Current Medications Medications (Trade) Dose Ordered Sig/Sergio Route PRN Reason Start Time Stop Time Status Last Admin Dose Admin Acetaminophen (Tylenol Tab) 650 mg ONCE ONCE PO 03/22/17 04:00 03/22/17 04:01 DC 03/22/17 05:04 Ibuprofen (Motrin) 800 mg ONCE ONCE PO 03/22/17 05:00 03/22/17 05:01 DC 03/22/17 05:07 Procedures/MDM Medical decision-makin-year-old male who decided to leave AGAINST MEDICAL ADVICE. Patient was completely alert and oriented 4 with goal oriented speech , no auditory or visual hallucinations, no homicidal or suicidal ideation Departure Diagnosis: Primary Impression: Drug use Condition: Stable KAI BELLAMY Mar 22, 2017 05:22
[2017-03-22 15:30] LABS: BARBITURATES Negative (NEGATIVE); CANNABINOIDS Negative (NEGATIVE)
[2017-03-22 15:31] LABS: BENZODIAZEPINES Negative (NEGATIVE); COCAINE Positive (NEGATIVE); OPIATES Negative (NEGATIVE)
== END 2017-03-22 05:24 | disposition left against medical advice (07) ==
LOC: E/R 02:20
DX: F15.90 Other stimulant use, unspecified, uncomplicated (principal); I10 Essential (primary) hypertension; F17.210 Nicotine dependence, cigarettes, uncomplicated; Z79.84 Long term (current) use of oral hypoglycemic drugs
CPT/HCPCS: 80048; 80307; 81003; 85025; 99283

== ENCOUNTER 2018-06-12 06:04 | Emergency (ER) | END 2018-06-12 06:39 | disposition home or self-care (01) ==

== ENCOUNTER 2018-06-25 13:32 | Emergency (ER) | END 2018-06-25 16:28 | disposition left against medical advice (07) ==